=== PATIENT | female | born 1940 | race Caucasian/White ===

== ENCOUNTER 2023-04-07 18:14 | Emergency (ER) | payer OTHER, SELFPAY ==
--- NOTE | 2023-04-07 18:47 | PC.NURSE ---
presents to desk with son and states unable to wait. will follow up if symptoms progress
== END 2023-04-07 18:47 | disposition left against medical advice (07) ==
PROVIDERS: PCP Emergency Medicine
DX: Z53.21 Procedure and treatment not carried out due to patient leaving prior to being seen by health care provider (principal)
CPT/HCPCS: 99199

== ENCOUNTER 2023-08-17 01:38 | Emergency (ER) | payer OTHER, SELFPAY ==
[2023-08-17] VITALS (26 sets, daily range): BP systolic 105–157; BP diastolic 57–99; PULSE 63–98; RESP 12–20; TEMP 36.3; O2SAT 93–100
--- NOTE | ~2023-08-17 | CT_ITS ---
EXAMINATION: CT brain wo con DATE: 08/17/2023 02:58 INDICATION: Altered mental status TECHNIQUE: Computed tomography (CT) of the head was performed without intravenous contrast. Sagittal and coronal reconstructions were performed. The mA was adjusted according to patient size. Iterative reconstruction technique was employed. The dose-length product was 681.00 mGy-cm. COMPARISON: head CT and brain MR dated 06/03/2013 FINDINGS: No acute intracranial hemorrhage, acute infarction or abnormal extra axial fluid collection. There is mild scattered white matter hypoattenuation consistent with chronic small vessel ischemic disease. S ymmetric prominence of the sulci and subarachnoid spaces overlying the convexities consistent with mi ld to moderateage-appropriate diffuse cerebral volume loss. Ventricles are normal and symmetric. No m ass/mass effect. Changes of left intraocular lens replacement. The orbits and mastoid air cells are n ormal. Mild mucosal thickening the paranasal sinuses. IMPRESSION: 1. No acute intracranial process. 2. Age-related changes including mild to moderate diffuse volume loss and mild scattered white matter hypoattenuation consistent with chronic small vessel ischemic disease. Reviewed, dictated and finalized at location A. IMPRESSION: 1. No acute intracranial process. 2. Age-related changes including mild to moderate diffuse volume loss and mild scattered white matter hypoattenuation consistent with chronic small vessel isc hemic disease.
--- NOTE | ~2023-08-17 | XR_ITS ---
EXAMINATION: XR chest 1V portable DATE: 08/17/2023 02:16 INDICATION: Altered mental status TECHNIQUE: frontal view of the chest was obtained. COMPARISON: Chest radiograph dated 07/14/2016 FINDINGS: Mild biapical pleural-parenchymal scarring. No focal airspace opacities, pulmonary edema, pleural eff usion or pneumothorax. The cardiomediastinal silhouette is normal. IMPRESSION: 1. Mild biapical pleural-parenchymal scarring. No acute cardiopulmonary disease. Reviewed, dictated and finalized at location A. IMPRESSION: 1. Mild biapical pleural-parenchymal scarring. No acute cardiopulmonary disease .
--- NOTE | 2023-08-17 01:53 | PC.NURSE ---
Patient son arrives at bedside.
--- NOTE | 2023-08-17 02:00 | ECG_ITS ---
Measurements Intervals [place] Rate: 74 P: 39 W[place]: 132 QRS: 23 QRSD: 88 T: 27 QT: 413 QTc: 460 Interpretive Statements SINUS RHYTHM INCOMPLETE RIGHT BUNDLE BRANCH BLOCK BORDERLINE ECG NO PREVIOUS ECG AVAILABLE FOR COMPARISON Electronically Signed On 08-17-2023 8:07:42 CDT by Geoffrey Low D.O.
--- NOTE | 2023-08-17 02:32 | ED.GENADULT ---
HPI - General Adult General Chief complaint: Altered Mental Status <Oracio Solis MD - Last Filed: 08/17/23 07:07> Stated complaint: FOUND WANDERING OUTSIDE BY PD. <Oracio Solis MD - Last Filed: 08/17/23 07:07> Time Seen by Provider: 08/17/23 01:50 <Oracio Solis MD - Last Filed: 08/17/23 07:07> History of Present Illness HPI narrative: Patient is a 82-year-old female who presents emergency department with chief complaint of altered mental status. Per the patient's family she has had some confusion before and has had some episodes of wandering patient was found wandering by police and having random thoughts patient has history of dementia. <Oracio Solis MD - Last Filed: 08/17/23 07:07> Related Data Home medications: Home Medications Medication Instructions Recorded Confirmed cetirizine 10 mg tablet (Zyrtec) 5 mg PO DAILY PRN 04/20/19 03/26/23 cholecalciferol (vitamin D3) 50 2,000 unit PO DAILY 04/20/19 03/26/23 mcg (2,000 unit) tablet <Oracio Solis MD - Last Filed: 08/17/23 07:07> Allergies/adverse reactions: Allergies Allergy/AdvReac Type Severity Reaction Status Date / Time aspirin Allergy Unknown Unknown Verified 03/26/23 10:40 cat dander Allergy Unknown Unknown Verified 03/26/23 10:40 mold Allergy Unknown Unknown Verified 03/26/23 10:40 oxycodone Allergy Unknown Unknown Verified 03/26/23 10:40 soy Allergy Unknown Unknown Verified 03/26/23 10:40 <Oracio Solis MD - Last Filed: 08/17/23 07:07> Review of Systems Review of Systems: A 10 system review of systems was completed on the patient and is negative except for what is stated in the HPI. Nursing and ancillary documentation was reviewed. <Oracio Solis MD - Last Filed: 08/17/23 07:07> PMFSH Past Medical History Medical History: Medical History HLD (hyperlipidemia) <Oracio Solis MD - Last Filed: 08/17/23 07:07> Family History Family History: Family History Mother Family history of osteoporosis Family history of Alzheimer's disease, Onset Age: 84 Diabetes mellitus Family history of cardiovascular disease Patient's mother is Father Family history of cardiovascular disease, Onset Age: 83 Acute myocardial infarction, Onset Age: 83 Family history of hepatitis, Onset Age: 83 Family history of pancreatic cancer, Onset Age: 83 Family history of primary malignant neoplasm of liver, Onset Age: 83 Patient's father is Family history of malignant neoplasm Sibling Patient's sister is in good health Patient's brother is in good health <Oracio Solis MD - Last Filed: 08/17/23 07:07> Social History Social History: Social History Smoking status: Never smoker Second hand tobacco smoke exposure: No Alcohol intake: never Substance use: never Substance use type: does not use Current Housing: Decline to Answer Concerned About Future Housing: Decline to Answer Difficulty Paying Gas/Electric Bills: Decline to Answer Difficulty Paying for Meds: Decline to Answer Currently Unemployed: Decline to Answer Education: Decline to Answer Difficulty w/ Childcare or Family Care: Decline to Answer Gender identity (if verbalized by the patient): Female Spiritual care concerns: No Agree to blood products: Yes <Oracio Solis MD - Last Filed: 08/17/23 07:07> Exam Narrative: GENERAL: Well-appearing, well-nourished, and in no acute distress. HEAD: Normocephalic, atraumatic. EYES: PERRLA and EOMI. ENT: Nares clear, no rhinorrhea or epistaxis. Mucous membranes moist. NECK: Supple. CHEST: Clear to auscultation. No respiratory distress. HEART: Regu
[2023-08-17] MEDS: LORazepam INJ (*CRX) 2 MG/ML VIAL 1 MG IV PUSH (02:43)
[2023-08-17 02:48] LABS: Basophils Percent Auto 0.4 % (0.2-1.2); Eosinophils Absolute Auto 0.1 K/mm3 (0-0.3); Hematocrit 32.7 % (37.0-47.0); Immature Granulocyte Absolute 0.01 K/mm3 (0.00-0.031); Immature Granulocyte Percent A 0.1 % (0-0.5); Lymphocytes Absolute Auto 2.04 K/mm3 (0.9-3.2); Lymphocytes Percent Auto 29.6 % (18.3-44.2); Mean Corpuscular HGB Conc 33.6 g/dl (32-36); Mean Corpuscular Hemoglobin 31.4 pg (26-34); Mean Corpuscular Volume 93.4 fl (80-100); Mean Platelet Volume 9.1 fl (7.4-10.4); Monocytes Absolute Auto 0.7 K/mm3 (0.1-0.6); Monocytes Percent Auto 10.1 % (2.6-8.5); Neutrophils Percent Auto 57.8 % (45.5-73.1); Platelet Count Result 207 k/mm3 (150-375); White Blood Count 6.9 K/mm3 (4.5-10.0)
[2023-08-17 02:59] LABS: Lactic Acid Reflex 1.9 mmol/L (0.7-2.0); Partial Thromboplastin Time 24.3 Seconds (22.3-36.8); Prothrombin Time 13.9 Seconds (11.1-14.7)
[2023-08-17 03:03] LABS: Ethanol < 10 mg/dL (<10)
[2023-08-17 03:20] LABS: Procalcitonin 0.1 ng/mL
[2023-08-17 03:26] LABS: Influenza A QL RT-PCR Negative (Negative); Influenza B QL RT-PCR Negative (Negative); RSV RNA, RT-PCR Negative (Negative); SARS-CoV-2 RNA PCR Negative (Negative)
[2023-08-17 03:33] LABS: Appearance Urine Clear (Clear); Bilirubin Urine Negative (Negative); Blood Urine Negative (Negative); Color Urine Yellow (Yellow); Glucose Urine UA Negative (Negative); Ketones Urine Negative (Negative); Leukocyte Esterase Ur Negative LEU/UL (Negative); Nitrate Urine Negative (Negative); Protein Urine Negative (Negative); pH Urine 5.5 (5.0-9.0)
[2023-08-17 03:35] LABS: Add Urine Microscopic? NO
[2023-08-17 03:49] LABS: Amphetamine Screen Urine Negative (Negative); Barbiturate Screen Urine Negative (Negative); Benzodiazepines Screen Urine Negative (Negative); Cannabinoid Screen Urine Negative (Negative); Cocaine Screen Urine Negative (Negative); Methadone Screen Urine Negative (Negative); Opiate Screen Urine Negative (Negative); Phencyclidine Screen Urine Negative (Negative)
[2023-08-17 03:52] LABS: Alanine Aminotransferase 12 U/L (6-35); Albumin Level 3.9 g/dL (3.5-5.1); Alkaline Phosphatase 63 U/L (38-126); Anion Gap 5 mmol/L (8-16); Aspartate Amino Transferase 28 U/L (14-36); Bilirubin,Total 0.7 mg/dL (0.2-1.3); Blood Urea Nitrogen 14 mg/dL (7-17); Calcium 9.2 mg/dL (8.4-10.2); Carbon Dioxide 27 mmol/L (22-30); Chloride 106 mmol/L (98-107); Estimated Glomerular Filt Rate > 60; Glucose 101 mg/dL (65-110); Magnesium 1.9 mg/dL (1.6-2.3); Potassium 3.5 mmol/L (3.4-5.0); Sodium 138 mmol/L (137-145)
[2023-08-17 04:04] LABS: NT Pro B Type Natriuretic Pept 124 pg/mL (19.9-100); Troponin I < 0.012 ng/mL (0.000-0.034)
[2023-08-17 07:01] LABS: Troponin I < 0.012 ng/mL (0.000-0.034)
--- NOTE | 2023-08-17 09:00 | PC.NURSE ---
Ambulatory in halls with steady gait.
== END 2023-08-17 09:26 | disposition home or self-care (01) ==
PROVIDERS: Emergency Provider Emergency Medicine; PCP Emergency Medicine
DX: F03.90 Unspecified dementia, unspecified severity, without behavioral disturbance, psychotic disturbance, mood disturbance, and anxiety (principal); F05 Delirium due to known physiological condition; E78.5 Hyperlipidemia, unspecified; Z20.822 Contact with and (suspected) exposure to COVID-19; Z79.899 Other long term (current) drug therapy
CPT/HCPCS: 36415; 70450; 71045; 80053; 80307; 83605; 83735; 83880; 84145; 84484; 85025; 85610; 85730; 87637; 93005; 96374; 99284; J2060

== ENCOUNTER 2025-04-26 13:18 | Emergency (ER) | payer OTHER, SELFPAY ==
--- NOTE | ~2025-04-26 | XR_ITS ---
EXAMINATION: XR knee LT 3V, 04/26/2025 13:40 EDUCATION FINANCE PROCESSOR HISTORY: pain, FELL ON LFT KNEE COMPARISON: No comparisons available. Findings: No acute fracture or malalignment. No significant degenerative changes. Soft tissues unremarkable. Impression: No acute fracture or malalignment. Reviewed, dictated and finalized at location P. ATION FINANCE PROCESSOR Impression: No acute fracture or malalignment.
--- NOTE | ~2025-04-26 | XR_ITS ---
EXAMINATION: XR ankle RT min 3V, 04/26/2025 13:40 DIRECTOR INFORMATION SECURITY HISTORY: right ankle injury, TWISTED COMPARISON: No comparisons available. Findings: No acute fracture or malalignment. No significant degenerative changes. Soft tissues unremarkable. Impression: No acute fracture or malalignment. Reviewed, dictated and finalized at location P. CTOR INFORMATION SECURITY Impression: No acute fracture or malalignment.
[2025-04-26 13:19] VITALS: BP 163/78; PULSE 74; RESP 17; TEMP 36.6; O2SAT 97
--- NOTE | 2025-04-26 13:36 | ED.GENADULT ---
HPI - General Adult General Chief complaint: Extremity Injury, Lower Stated complaint: ankle injury Time Seen by Provider: 04/26/25 13:32 History of Present Illness HPI narrative: Patient 84-year-old female who presents emergency department with chief complaint of fall patient reports that she tripped going down the stairs the patient reports no head injury denies loss of consciousness reports that she has pain in her right ankle and her left knee Related Data Home Medications ?Medication ?Instructions ?Recorded ?Confirmed ?Last Taken ?Type cetirizine 10 mg tablet (Zyrtec) 5 mg PO DAILY PRN 04/20/19 05/04/24 Unknown History cholecalciferol (vitamin D3) 50 2,000 unit PO DAILY 04/20/19 05/04/24 Unknown History mcg (2,000 unit) tablet Allergies Allergy/AdvReac Type Severity Reaction Status Date / Time aspirin Allergy Unknown Unknown Verified 05/04/24 10:30 cat dander Allergy Unknown Unknown Verified 05/04/24 10:30 mold Allergy Unknown Unknown Verified 05/04/24 10:30 oxycodone Allergy Unknown Unknown Verified 05/04/24 10:30 soy Allergy Unknown Unknown Verified 05/04/24 10:30 Review of Systems Review of Systems: A 10 system review of systems was completed on the patient and is negative except for what is stated in the HPI. Nursing and ancillary documentation was reviewed. [facility] Past Medical History Medical History Cellulitis Insect bite Encounter for wellness examination Cerumen impaction HLD (hyperlipidemia) Carpal tunnel syndrome of left wrist Family History Family History Mother Family history of osteoporosis Family history of Alzheimer's disease, Onset Age: 84 Diabetes mellitus Family history of cardiovascular disease Patient's mother is Father Family history of cardiovascular disease, Onset Age: 83 Acute myocardial infarction, Onset Age: 85 Family history of hepatitis, Onset Age: 83 Family history of pancreatic cancer, Onset Age: 83 Family history of primary malignant neoplasm of liver, Onset Age: 83 Patient's father is Family history of malignant neoplasm Sibling Patient's sister is in good health Patient's brother is in good health Social History Social History Smoking status: Never smoker Second hand tobacco smoke exposure: No Alcohol intake: never Substance use: never Substance use type: does not use Current Housing: Decline to Answer Concerned About Future Housing: Decline to Answer Difficulty Paying Gas/Electric Bills: Decline to Answer Difficulty Paying for Meds: Decline to Answer Currently Unemployed: Decline to Answer Education: Decline to Answer Difficulty w/ Childcare or Family Care: Decline to Answer Gender identity (if verbalized by the patient): Female Spiritual care concerns: No Agree to blood products: Yes Exam Narrative: GENERAL: Well-appearing, well-nourished, and in no acute distress. HEAD: Normocephalic, atraumatic. EYES: PERRLA and EOMI. ENT: Nares clear, no rhinorrhea or epistaxis. Mucous membranes moist. NECK: Supple. CHEST: Clear to auscultation. No respiratory distress. HEART: Regular rate and rhythm. No murmur heard. Normal peripheral pulses. ABDOMEN: Soft, nontender, nondistended, normal active bowel sounds. EXTREMITIES: Normal range of motion. No edema. Mild tenderness to palpation the right ankle no deformity, mild tenderness to palpation in the left knee SKIN: Warm, dry, no rash. NEURO: No focal deficits. Alert and oriented x3. PSYCH: Normal mood and affect. Course Vital Signs Vital signs: Vital Signs Temperature 36.6 C 04/26/25 13:19 Pulse Rate 74 04/26/25 13:19 Respiratory Rate 17 04/26/25 13:19 Blood Pressure 163/78 H 04/26/25 13:19 Pulse Oximetry 97 04/26/25 13:19 Oxygen Delivery Room Air 04/26/25 13:19 Temperature 36.6 C 04/26/25 13:19 Pulse Rate 74 04/26/25 13:19 Respiratory Rate 17 04/26/25 13:19 Blood Pressure 163/78 H 04/26/25 13:19 Pulse Oximetry 97 04/26/25 13:19 Oxygen Delivery Room Air 04/26/25 13:19 Medical Decision Making [facility] Narrative Medical decision making narrative: Differential diagnosis includes fracture, sprain, strain Plain film x-rays were obtained that showed no evidence of fracture The patient was able ambulate without difficulty after the ankle was wrapped Vital Signs Vital Signs: Vital Signs Temperature 36.6 C 04/26/25 13:19 Pulse Rate 74 04/26/25 13:19 Respiratory Rate 17 04/26/25 13:19 Blood Pressure 163/78 H 04/26/25 13:19 Pulse Oximetry 97 04/26/25 13:19 Oxygen Delivery Room Air 04/26/25 13:19 Temperature 36.6 C 04/26/25 13:19 Pulse Rate 74 04/26/25 13:19 Respiratory Rate 17 04/26/25 13:19 Blood Pressure 163/78 H 04/26/25 13:19 Pulse Oximetry 97 04/26/25 13:19 Oxygen Delivery Room Air 04/26/25 13:19 Discharge Plan Discharge Clinical Impression: Right ankle sprain Patient Disposition: Home Condition: Stable Instructions: Antibiotic Form, Ankle Sprain (ED) Patient Language: Pashto Prescriptions: No Action cetirizine [Zyrtec] 10 mg tablet 5 mg PO DAILY PRN Rx Instructions: take one tablet by oral route daily cholecalciferol (vitamin D3) 2,000 unit tablet 2,000 unit PO DAILY mirtazapine [Remeron] 15 mg tablet 15 mg PO DAILY Qty: 30 0RF levothyroxine [Synthroid] 50 mcg tablet See Rx Instructions .ROUTE .COMPLEX Qty: 90 2RF Dose Instruction: TAKE 1 TABLET BY MOUTH DAILY Rx Instructions: TAKE 1 TABLET BY MOUTH DAILY ondansetron 4 mg tablet,disintegrating 4 mg PO Q6H PRN (Reason: nausea and vomiting) Qty: 20 0RF clopidogrel 75 mg tablet See Rx Instructions .ROUTE .COMPLEX Qty: 90 2RF Dose Instruction: TAKE 1 TABLET BY MOUTH EVERY DAY Rx Instructions: TAKE 1 TABLET BY MOUTH EVERY DAY Follow-up/Referrals: Ariel Woodruff MD [Primary Care Provider, Internal Medicine] Time of Disposition: 15:15
[2025-04-26 15:48] VITALS: BP 143/66; PULSE 103; RESP 20; O2SAT 98
--- OUTSIDE RECORDS SUMMARY | 2025-04-26 15:51 | XMS_ITS | Clinical Summary ---
Author Organization 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 Name Role Phone Unavailable Primary Care Provider Unavailabl e Social History Tobacco Use Types Packs/Day Years Used Date Smoking Tobacco: Never Assessed Comments Unknown Sex and Gender Information Value Date Recorded Sex Assigned at Not on file Legal Sex Female 8:55 PM CDT Gender Identity Not on file Sexual Orientation Not on file Last Filed Vital Signs Vital Sign Reading Time Taken Comments Blood Pressure 140/80 08/12/2016 11:41 AM CDT Pulse 99 08/12/2016 11:41 AM CDT Temperature - - Respiratory Rate - - Oxygen Saturation - - Inhaled Oxygen Concentration - - Weight 70.3 kg (155 lb) 08/12/2016 11:41 AM CDT Height 154.9 cm (5' 1) 08/12/2016 11:41 AM CDT Body Mass Index 29.29 08/12/2016 11:41 AM CDT Plan of Treatment Health Maintenance Due Date Last Done Comments DTaP, Tdap and Td Vaccines ( 1 - Tdap) 1961 Zoster Vaccines (1 of 2) 1992 Dexa Scan (General) 11/24/2007 Pneumococcal Vaccine: 50+ Ye ars (2 of 2 - PCV) 07/12/2017 07/12/2016 RSV Immunization or 60+ Years (1 - 1-dose 75+ series) 2017 COVID-19 Vaccine (2024-2 6 season) 2025 Influenza Adult (#1) 2025 Hepatitis A Vaccines Aged Out No long er eligible based on patient's age to complete this topic Meningococcal B Vaccine Aged Out No l onger eligible based on patient's age to complete this topic Meningococcal Vaccine Aged Out No sohail vikki eligible based on patient's age to complete this topic RSV Immunizations Under 20 Months Aged Out No longer eligible based on patient's age to complete this topic
--- OUTSIDE RECORDS SUMMARY | 2025-04-26 15:51 | XMS_ITS | Encounter Summary ---
Author Organization [employer] [facility] Address [address] 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
--- OUTSIDE RECORDS SUMMARY | 2025-04-26 15:51 | XMS_ITS | Clinical Summary ---
Author Organization [employer] Address [address] 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
== END 2025-04-26 15:50 | disposition home or self-care (01) ==
PROVIDERS: Emergency Provider Emergency Medicine; PCP Emergency Medicine
DX: S93.401A Sprain of unspecified ligament of right ankle, initial encounter (principal); E78.5 Hyperlipidemia, unspecified; W10.9XXA Fall (on) (from) unspecified stairs and steps, initial encounter
CPT/HCPCS: 73562; 73610; 99284